=== PATIENT | female | born 1980 | race Caucasian/White ===

== ENCOUNTER 2019-02-11 21:05 | Emergency (ER) | payer OTHER ==
[~2019-02-11] VITALS: Ht 154.9 cm; Wt 86.1 kg
[2019-02-11] MEDS ORDERED: IBUPROFEN 600MG TABLET PO ONE (22:45)
[2019-02-11 22:50] VITALS: BP 115/78
== END 2019-02-11 22:51 | disposition home or self-care (01) ==
LOC: ER 21:05
DX: S16.1XXA Strain of muscle, fascia and tendon at neck level, initial encounter (principal); S80.02XA Contusion of left knee, initial encounter; S40.212A Abrasion of left shoulder, initial encounter; Z88.6 Allergy status to analgesic agent; Z90.710 Acquired absence of both cervix and uterus; Z90.49 Acquired absence of other specified parts of digestive tract; V49.9XXA Car occupant (driver) (passenger) injured in unspecified traffic accident, initial encounter; Y93.89 Activity, other specified; Y92.89 Other specified places as the place of occurrence of the external cause; Y99.8 Other external cause status
CPT/HCPCS: 99282